=== PATIENT | male | born 1990 | race Caucasian/White ===

== ENCOUNTER 2023-01-28 11:11 | Emergency (ER) | payer SELFPAY ==
[~2023-01-28] VITALS: Ht 182.9 cm; Wt 90.7 kg
[2023-01-28 11:54] VITALS: BP 123/82; PULSE 81; RESP 18; TEMP 98.2; O2SAT 98
[2023-01-28] MEDS ORDERED: KETOROLAC 30 MG/ML VIAL IM ONE (12:30)
[2023-01-28] MEDS ORDERED: NAPR-54 PO (12:59)
[2023-01-28] MEDS ORDERED: KETOROLAC 60 MG/2 ML VIAL IM ONE (13:45)
== END 2023-01-28 13:40 | disposition home or self-care (01) ==
LOC: MED 11:11
DX: S93.401A Sprain of unspecified ligament of right ankle, initial encounter (principal); Z79.1 Long term (current) use of non-steroidal anti-inflammatories (NSAID); W18.39XA Other fall on same level, initial encounter; Y92.89 Other specified places as the place of occurrence of the external cause; Y93.02 Activity, running; Y99.8 Other external cause status
CPT/HCPCS: 73610; 96372; 99283; J1885